=== PATIENT | male | born 1960 | race Caucasian/White ===

== ENCOUNTER 2021-06-05 12:45 | Outpatient (CLI) | payer BC, SELFPAY ==
[2021-06-05 12:55] VITALS: BP 148/90; PULSE 79; RESP 16; TEMP 36.8; O2SAT 100; BMI 27.9
[2021-06-05] MEDS: 0.9% Saline Lock 10 ML Syringe IV (13:01)
[2021-06-05 13:33] VITALS: BP 130/78; PULSE 68; RESP 16; TEMP 37.2; O2SAT 99
[2021-06-05 14:16] VITALS: BP 131/75; PULSE 68; RESP 16; TEMP 36.8; O2SAT 98
== END 2021-06-05 14:33 | disposition home or self-care (01) ==
LOC: MS3OUT 12:45 → MS3 12:46
PROVIDERS: PCP Family Medicine; Referring Provider Nurse Practitioner Adult Health; Visit Provider Nurse Practitioner Adult Health
DX: Z23 Encounter for immunization (principal); U07.1 COVID-19
CPT/HCPCS: J7050; M0245; Q0245; A4216

== ENCOUNTER → 2025-04-11 | Outpatient (CLI) | payer BC, SELFPAY ==
[2025-04-11 18:26] LABS: Anion Gap 14 (5-15); BUN 21 mg/dL (4-19); BUN/Creat Ratio 28.6 RATIO (10-20); Calcium,Total 9.6 mg/dL (7.6-11.0); Carbon Dioxide 23.5 mmol/L (21.0-32.0); Chloride 104 mmol/L (98-108); Glucose 125 mg/dL (70-99); Potassium 4.2 mmol/L (3.3-5.1)
== END | disposition home or self-care (01) ==
LOC: MTLAB 16:08
PROVIDERS: PCP Family Medicine; Referring Provider Orthopaedic Surgery; Visit Provider Orthopaedic Surgery
DX: Z01.818 Encounter for other preprocedural examination (principal); E11.9 Type 2 diabetes mellitus without complications
CPT/HCPCS: 36415; 80048; 83036

== ENCOUNTER → 2025-05-07 | Outpatient (CLI) | payer BC, SELFPAY | END | disposition home or self-care (01) | LOC: MTLAB 15:39 | PROVIDERS: PCP Family Medicine; Referring Provider Orthopaedic Surgery; Visit Provider Orthopaedic Surgery | DX: E11.9 Type 2 diabetes mellitus without complications (principal) | CPT/HCPCS: 36415; 83036 ==

== ENCOUNTER → 2025-05-13 | Outpatient (CLI) | payer BC, SELFPAY ==
--- NOTE | 2025-05-10 14:00 | MASS_PTH ---
PATIENT: LEANNE BROWER LOC: [facility] U#:[id number] AGE/SX: 64/M ROOM: RE05/13/[address]: Dr. Laron Badillo MD : 1960 BED: DIS: 05/13/2025 SPEC #: [id number] RECD: 05/13/25 15:00 STATUS: ZACARIAS MAIN #: [id number] RUTHIE: 05/10/25 14:[address]: Laron Badillo DEPT: SURGICAL PATHOLOGY RECD BY: Apolinar Goldstein ENTERED: 05/14/25 10:14 SP TYPE: Mass OTHR DR: Dr. Halley Badillo MD Tissues: A - Finger, NOS B - Finger, NOS Procedures: Surgery Specimen Level III HEADER OPERATION: Right middle finger masses excisional biopsies PRE-OP DIAGNOSIS: Soft tissue disorder, unspecified TISSUE SUBMITTED: A- Right middle finger mass, B- Right distal middle finger mass MICROSCOPIC DIAGNOSIS A. Soft tissue, right middle finger phalanx, excision: * Epidermal inclusion cyst, ruptured and inflamed B. Soft tissue, right distal middle finger phalanx, excision: * Epidermal inclusion cyst, MICROSCOPIC DESCRIPTION Slides are reviewed. GROSS DESCRIPTION Received in 2 formalin containers labeled with the patient's name and date of . Designated as: A. Right middle finger phalanx is a 1.4 x 1.3 x 1.1 cm alvarenga-white, focally disrupted cyst expelling alvarenga-white, iridescent keratinous-like material and focally surfaced by a 1.2 x 0.7 cm alvarenga-pink to red-martinez portion of skin, devoid of orientation. Office Sweeper sections are submitted in 1 cassette. B. Right distal middle finger phalanx is a 1.1 x 1.0 x 0.8 cm alvarenga-white, intact cyst containing a alvarenga-a white, iridescent, keratinous-like material. Office Sweeper sections are submitted in 1 cassette. MI 05/14/2025 CPT:53670o8
== END | disposition home or self-care (01) ==
LOC: LABSPEC 15:44
PROVIDERS: PCP Family Medicine; Referring Provider Orthopaedic Surgery; Visit Provider Orthopaedic Surgery
DX: R22.31 Localized swelling, mass and lump, right upper limb (principal)
CPT/HCPCS: 88304